=== PATIENT | female | born 1995 | race Hispanic/Latino ===

== ENCOUNTER 2018-02-08 14:40 | Emergency (ER) | payer MEDICAID, OTHER ==
[2018-02-08 14:59] VITALS: RESP 20; O2SAT 98
--- NOTE | 2018-02-08 15:35 | ED PDOC ---
HPI: General Adult Time Seen by Provider: 02/08/18 15:09 Chief Complaint (Nursing): ENT Problem Chief Complaint (Provider): NECK PAIN History Per: Patient (22 Y/O FEMLAE HERE FOR SYNCOPAL EPISODE THAT OCCURRED 2 DAYS AGO AT WORK. PATIENT STATES SHE HAD NOT SLEPT PRIOR TO 6AM SHIFT AT [employer] AND WAS FEELING DIZZY PRIOR . 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 SUBSEQEUNTLY DEVELOPED WORSENING NECK PAIN.) Past Medical History Reviewed: Historical Data, Nursing Documentation, Vital Signs Vital Signs: Last Vital Signs Temp 97.6 F 02/08/18 14:55 Pulse 90 02/08/18 14:55 Resp 20 02/08/18 14:55 BP 126/79 02/08/18 15:02 Pulse Ox 98 02/08/18 16:53 - Medical History PMH: Denies: Kidney Stones, Chronic Kidney Disease - Family History Family History: States: No Known Family Hx - Immunization History Hx Tetanus Toxoid Vaccination: No Hx Influenza Vaccination: No Hx Pneumococcal Vaccination: No - Home Medications Home Medications: Ambulatory Orders Medication Instructions Recorded Naproxen 375 mg PO Q8 PRN #21 tablet 02/08/18 diaZEpam [Valium] 5 mg PO Q8 PRN #3 tab 02/08/18 - Allergies Allergies/Adverse Reactions: Allergies Allergy/AdvReac Type Severity Reaction Status Date / Time No Known Allergies Allergy Verified 08/17/17 15:50 Review of Systems ROS Statement: Except As Marked, All Systems Reviewed And Found Negative Physical Exam - Reviewed Nursing Documentation Reviewed: Yes Vital Signs Reviewed: Yes - Physical Exam Appears: Positive for: Well, Non-toxic, No Acute Distress Head Exam: Positive for: ATRAUMATIC, NORMAL INSPECTION, NORMOCEPHALIC Skin: Positive for: Normal Color, Warm, DRY Eye Exam: Positive for: EOMI, Normal appearance, PERRL ENT: Positive for: Normal ENT Inspection Neck: Positive for: Painless ROM. Negative for: Normal (PARACERVICAL TENDERNESS ; MILD BILATERAL NECK TENDERNESS.) Cardiovascular/Chest: Positive for: Regular Rate, Rhythm Respiratory: Positive for: CNT, Normal Breath Sounds Gastrointestinal/Abdominal: Positive for: Normal Exam, Soft Back: Positive for: Normal Inspection Extremity: Positive for: Normal ROM Neurologic/Psych: Positive for: Alert, Oriented - Laboratory Results Result Diagrams: 02/08/18 15:41 02/08/18 15:41 Urine POC: Negative - ECG O2 Sat by Pulse Oximetry: 98 - Progress ED Course And Treament: HEAD CT: NAD CERVICAL CT SPINE: NAD TORADOL 15MG IV Disposition - Clinical Impression Clinical Impression: Acute strain of neck muscle, Syncope, Head injury - Patient ED Disposition Is Patient to be Admitted: No - Disposition Disposition: Routine/Home Disposition Time: 16:51 Condition: FAIR Prescriptions: diaZEpam [Valium] 5 mg PO Q8 PRN #3 tab PRN Reason: Muscle Spasm Naproxen 375 mg PO Q8 PRN #21 tablet PRN Reason: Pain, Moderate (4-7) Instructions: Closed Head Injury (DC), Syncope (Fainting) (DC), Neck Sprain (DC ) Forms: [facility] ED School/Work Excuse
[2018-02-08 15:49] LABS: BASO # 0.1 K/uL (0.0-0.2); BASO % 1.2 % (0.0-2.0); EOS # 0.1 K/uL (0.0-0.7); EOS % 1.5 % (0.0-4.0); HEMOGLOBIN 13.1 g/dL (12.0-16.0); LYMPH % 38.1 % (20.0-40.0); MEAN CELL VOLUME 85.1 fl (81.0-99.0); MEAN CORPUSCULAR HEMOGLOBIN 29.4 pg (27.0-31.0); MEAN CORPUSCULAR HGB CONC 34.5 g/dL (33.0-37.0); MEAN PLATELET VOLUME 8.9 fl (7.2-11.7); MONO # 0.4 K/uL (0.0-0.8); MONO % 4.8 % (0.0-10.0); NEUT # 4.3 K/uL (1.8-7.0); NEUT % 54.4 % (50.0-75.0); RBC 4.46 Mil/uL (3.80-5.20); RED CELL DISTRIBUTION WIDTH 13.7 % (11.5-14.5)
[2018-02-08 16:01] LABS: ALB/GLOB RATIO 1.3 (1.0-2.1); ALBUMIN 4.2 g/dL (3.5-5.0); ALT/SGPT 35 U/L (9-52); AST/SGOT 21 U/L (14-36); BLOOD UREA NITROGEN 7 mg/dl (7-17); CALCIUM 9.4 mg/dL (8.4-10.2); GFR AFRICAN-AMERICAN > 60; GFR NON-AFRICAN AMERICAN > 60
--- NOTE | 2018-02-08 16:44 | CT ---
Date of service: 02/08/2018 PROCEDURE: CT HEAD WITHOUT CONTRAST. HISTORY: HEAD INJURY COMPARISON: 08/17/2017 TECHNIQUE: Axial computed tomography images were obtained through the head/brain without intravenous contrast. Radiation dose: Total exam DLP = 822.19 mGy-cm. This CT exam was performed using one or more of the following dose reduction techniques: Automated exposure control, adjustment of the mA and/or kV according to patient size, and/or use of iterative reconstruction technique. FINDINGS: HEMORRHAGE: No intracranial hemorrhage. BRAIN: No mass effect or edema. No atrophy or chronic microvascular ischemic changes. VENTRICLES: Unremarkable. No hydrocephalus. CALVARIUM: Unremarkable. PARANASAL SINUSES: Unremarkable as visualized. No significant inflammatory changes. MASTOID AIR CELLS: Unremarkable as visualized. No inflammatory changes. OTHER FINDINGS: None. IMPRESSION: No acute intracranial abnormalities. No significant findings to account for the clinical presentation. No significant interval change compared to the prior examination(s).
--- NOTE | 2018-02-08 16:46 | CT ---
Date of service: 02/08/2018 PROCEDURE: CT Cervical Spine without contrast HISTORY: R/O C SPINE INJURY COMPARISON: None available. TECHNIQUE: Axial computed tomography images were obtained of the cervical spine without the use of intravenous contrast. Coronal and sagittal reformatted images were created and reviewed. Radiation dose: Total exam DLP = 308.16 mGy-cm. This CT exam was performed using one or more of the following dose reduction techniques: Automated exposure control, adjustment of the mA and/or kV according to patient size, and/or use of iterative reconstruction technique. FINDINGS: VERTEBRAE: No fracture. Normal alignment. No destructive bony lesion. DISCS/SPINAL CANAL/NEURAL FORAMINA: No significant central canal or neural foraminal stenosis. Discs heights are grossly preserved. PARASPINAL SOFT TISSUES: Unremarkable. OTHER FINDINGS: None. IMPRESSION: Unremarkable CT of the cervical spine.
[2018-02-08 17:48] VITALS: BP 110/70; PULSE 74; TEMP 98
--- NOTE | 2018-02-09 20:06 | CARD ---
APPROVED REPORT Date of service: 02/08/2018 EKG Measurement Heart [id number] <Conclusion> Normal sinus rhythm with sinus arrhythmia Normal ECG
== END 2018-02-08 17:47 | disposition home or self-care (01) ==
LOC: H.ER 14:40
DX: S16.1XXA Strain of muscle, fascia and tendon at neck level, initial encounter (principal); S09.90XA Unspecified injury of head, initial encounter; W19.XXXA Unspecified fall, initial encounter; Y99.0 Civilian activity done for income or pay
CPT/HCPCS: 70450; 72125; 80053; 81025; 85025; 93005; 96374; 99283; J1885

== ENCOUNTER 2018-03-17 23:59 | Inpatient (IN) | payer OTHER, SELFPAY ==
[2018-03-18] MEDS ORDERED: Sodium Chloride 0.9% 1,000 ML IV ONE (00:20)
[2018-03-18 00:52] LABS: BASO # 0.1 K/uL (0.0-0.2); EOS # 0.1 K/uL (0.0-0.7); EOS % 0.9 % (0.0-4.0); HEMOGLOBIN 14.5 g/dL (12.0-16.0); LYMPH # 2.9 K/uL (1.0-4.3); LYMPH % 37.9 % (20.0-40.0); MEAN CELL VOLUME 85.4 fl (81.0-99.0); MEAN CORPUSCULAR HEMOGLOBIN 28.8 pg (27.0-31.0); MEAN CORPUSCULAR HGB CONC 33.7 g/dL (33.0-37.0); MEAN PLATELET VOLUME 9.2 fl (7.2-11.7); MONO # 0.5 K/uL (0.0-0.8); MONO % 6.6 % (0.0-10.0); NEUT # 4.1 K/uL (1.8-7.0); NEUT % 53.6 % (50.0-75.0); RBC 5.03 Mil/uL (3.80-5.20); RED CELL DISTRIBUTION WIDTH 13.8 % (11.5-14.5); WHITE BLOOD COUNT 7.6 K/uL (4.8-10.8)
[2018-03-18 01:04] LABS: ALB/GLOB RATIO 1.1 (1.0-2.1); ALBUMIN 4.2 g/dL (3.5-5.0); ALT/SGPT 37 U/L (9-52); AST/SGOT 31 U/L (14-36); BLOOD UREA NITROGEN 6 mg/dl (7-17); CALCIUM 9.5 mg/dL (8.4-10.2); GFR NON-AFRICAN AMERICAN > 60
[2018-03-18 01:11] LABS: SALICYLATE < 1.0 mg/dl
[2018-03-18] MEDS ORDERED: ACETYLCYSTEINE IVPB ONE ×4 (01:12→05:30)
[2018-03-18] MEDS ORDERED: DEXTROSE 5% IVPB ONE ×4 (01:12→05:30)
[2018-03-18] MEDS ORDERED: WATER IVPB ONE ×4 (01:12→05:30)
[2018-03-18 01:39] LABS: BARBITURATES, UR NEGATIVE (NEGATIVE); BENZODIAZEPINES, UR NEGATIVE (NEGATIVE); OPIATES, UR NEGATIVE (NEGATIVE); PHENCYCLIDINE, UR NEGATIVE (NEGATIVE)
--- NOTE | 2018-03-18 01:39 | ED PDOC ---
HPI: Psych/Substance Abuse Time Seen by Provider: 03/18/18 00:17 Chief Complaint (Nursing): Psychiatric Evaluation Chief Complaint (Provider): Overdose History Per: Patient History/Exam Limitations: no limitations Onset/Duration Of Symptoms: Hrs Current Symptoms Are (Timing): Still Present Associated Symptoms: Depression Additional Complaint(s): 22 year old female with PMHx of depression presents to the ER by [facility] for an evaluation for overdose. Patient states she took 40 tablets of Ibuprofen 200mg at 7pm and 28 tablets of Tylenol 500mg at 10pm. Patient denies taking any medication for depression or visiting a therapist. She notes history of SI by jumping from [place] 2 years ago. When questioned, patient states she has an awful relationship with , they fight everyday, and marriage is a mistake. Currently, she reports of mild headache. Denies sexual or physical abuse at home or any other complaints. PMD: None LNMP: 09/01/17 Past Medical History Reviewed: Historical Data, Nursing Documentation, Vital Signs Vital Signs: Last Vital Signs Temp 98 F 03/18/18 00:12 Pulse 100 H 03/18/18 00:12 Resp 18 03/18/18 00:12 BP 148/97 H 03/18/18 00:12 Pulse Ox 100 03/18/18 00:12 - Medical History PMH: Depression Denies: Kidney Stones, Chronic Kidney Disease - Surgical History Other surgeries: procedure to right arm as child - Family History Family History: States: Unknown Family Hx - Social History Current smoker - smoking cessation education provided: No Alcohol: None Drugs: Denies - Immunization History Hx Tetanus Toxoid Vaccination: No Hx Influenza Vaccination: No Hx Pneumococcal Vaccination: No - Home Medications Home Medications: Ambulatory Orders Medication Instructions Recorded Naproxen 375 mg PO Q8 PRN #21 tablet 02/08/18 diaZEpam [Valium] 5 mg PO Q8 PRN #3 tab 02/08/18 - Allergies Allergies/Adverse Reactions: Allergies Allergy/AdvReac Type Severity Reaction Status Date / Time No Known Allergies Allergy Verified 03/18/18 00:12 Review of Systems ROS Statement: Except As Marked, All Systems Reviewed And Found Negative Neurological: Positive for: Headache (mild) Psych: Positive for: Other (overdose) Physical Exam - Physical Exam Comments: GENERAL APPEARANCE: Patient is awake, alert, oriented x 3, in no acute distress. SKIN: Warm, dry; (-) cyanosis HEAD: (-) scalp swelling, (-) scalp tenderness. EYES: (-) conjunctival pallor, (-) scleral icterus, (-) nystagmus. ENMT: Mucous membranes moist. Airway patent: (-) stridor. NECK: (-) tenderness, (-) stiffness, (-) lymphadenopathy. HEART AND CARDIOVASCULAR: (-) irregularity; (-) murmur, (-) gallop. CHEST AND RESPIRATORY: (-) rales, (-) rhonchi, (-) wheezes; breath sounds equal. ABDOMEN: Soft, (-) distention, (-) tenderness, (-) guarding. NEURO AND PSYCH: Mental status as above. 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 Pupils equal and reactive; EOMI; (-) facial asymmetry; tongue and uvula midline. Strength and DTRs symmetric. - Laboratory Results Result Diagrams: 03/18/18 00:43 03/18/18 00:43 Urine POC: Negative Urine dip results: Negative for: Leukocyte Esterase, Blood, Nitrate, Ketones, Glucose, Bilirubin, Protein - ECG O2 Sat by Pulse Oximetry: 100 (RA) Pulse Ox Interpretation: Normal Medical Decision Making Medical Decision Making: Time: 18 Initial Impression: acetaminophen overdose, SI, depression Initial Plan: --EKG --Crisis Evaluation --ED Dipstick --Normal Saline 1000 mls/hr --1:1 Observation --Glucose, Blood, POC --Non Destructive Testing Inspector --IV Insertion --CBC w/ Differential --Glucose, POC Routine --Acetaminophen Stat --Alcohol serum --CMP --Drug screen, Urine --Lact Acid, Plasma --ED Urine Poison control contacted at 1215 by ED RN Nell and spoke with customer development representative Nicolasa. EKG: normal sinus rhythm 92, no ST elevation, QTC 452 Upreg: negative Udip unremarkable. 0112 Notified by lab of initial Acetaminophen level, anecdote ordered and call placed to hospitalist, Dr. Cotto. --Acetadote 13,610mg Dextrose 5% In Water 200ml 0127 Spoke to hospitalist, Dr. Cotto who is agreeable for admission and arrangements made for ICU admission. 0200 Patient with vomiting episode in ED. Zofran IVP ordered. Dr Cotto at bedside. Scribe Attestation: Documented by Carter Rodriguez, acting as a scribe for Emani Christine PA-C. Provider Scribe Attestation: All medical record entries made by the Scribe were at my direction and personally dictated by me. I have reviewed the chart and agree that the record accurately reflects my personal performance of the history, physical exam, medical decision making, and the department course for this patient. I have also personally directed, reviewed, and agree with the discharge instructions and disposition. Disposition - Clinical Impression Clinical Impression: Suicidal ideation, Acetaminophen overdose, Depression - Patient ED Disposition Is Patient to be Admitted: Yes Counseled Patient/Family Regarding: Studies Performed, Diagnosis - Disposition Disposition Time: 01:27 Condition: CRITICAL - Pt Status Changed To: Hospital Disposition Of: Inpatient (ICU) - Admit Certification Admit to Inpatient:: After my assessment, the patient will require hospitalization for at least two midnights. This is because of the severity of symptoms shown, intensity of services needed, and/or the medical risk in this patient being treated as an outpatient. - POA Present On Arrival: None Results - Lab Results Lab Results: 03/18/18 03/18/18 03/18/18 00:44 00:43 00:43 WBC RBC Hgb Hct MCV MCH MCHC RDW Plt Count MPV Neut % (Auto) Lymph % (Auto) Ida % (Auto) Eos % (Auto) Baso % (Auto) Neut # (Auto) Lymph # (Auto) Ida # (Auto) Eos # (Auto) Baso # (Auto) Sodium Potassium Chloride Carbon Dioxide Anion Gap BUN Creatinine Est GFR ( Amer) Est GFR (Non-Af Amer) POC Glucose (mg/dL) 100 Random Glucose Lactic Acid 1.2 Calcium Total Bilirubin AST ALT Alkaline Phosphatase Total Protein Albumin Globulin Albumin/Globulin Ratio Salicylates Urine Opiates Screen Negative Urine Methadone Screen Negative Acetaminophen Ur Barbiturates Screen Negative Ur Phencyclidine Scrn Negative Ur Amphetamines Screen Negative U Benzodiazepines Scrn Negative U Oth Cocaine Metabols Negative U Cannabinoids Screen Negative Alcohol, Quantitative 03/18/18 03/18/18 03/18/18 00:43 00:43 00:43 WBC 7.6 RBC 5.03 Hgb 14.5 Hct 43.0 MCV 85.4 MCH 28.8 MCHC 33.7 RDW 13.8 Plt Count 277 MPV 9.2 Neut % (Auto) 53.6 Lymph % (Auto) 37.9 Ida % (Auto) 6.6 Eos % (Auto) 0.9 Baso % (Auto) 1.0 Neut # (Auto) 4.1 Lymph # (Auto) 2.9 Ida # (Auto) 0.5 Eos # (Auto) 0.1 Baso # (Auto) 0.1 Sodium 139 Potassium 3.6 Chloride 103 Carbon Dioxide 25 Anion Gap 15 BUN 6 L Creatinine 0.6 L Est GFR ( Amer) > 60 Est GFR (Non-Af Amer) > 60 POC Glucose (mg/dL) Random Glucose 106 H Lactic Acid Calcium 9.5 Total Bilirubin 0.5 AST 31 ALT 37 Alkaline Phosphatase 64 Total Protein 7.9 Albumin 4.2 Globulin 3.7 Albumin/Globulin Ratio 1.1 Salicylates < 1.0 Urine Opiates Screen Urine Methadone Screen Acetaminophen 145.0 H Ur Barbiturates Screen Ur Phencyclidine Scrn Ur Amphetamines Screen U Benzodiazepines Scrn U Oth Cocaine Metabols U Cannabinoids Screen Alcohol, Quantitative < 10
--- NOTE | 2018-03-18 02:28 | CP.PCM.HP ---
<Bo Zavaleta - Last Filed: 03/18/18 02:51> History of Present Illness - History of Present Illness History of Present Illness: Pt seen and examined at bedside with Dr. Cotto 22 yo F with pmhx of depression and previous suicidal attempts presents to the ED after attempting suicide with ingestion of Ibuprophen #44 tablets and Tylenol # 28 tablets. She reports that she and her had an argument earlier in the day. Approximately 7 hours prior, she ingested the tablets. She denies feeling unsafe with him, him being violent against her or threatened by him. She reports chronic history of depression starting at age 17 with thoughts of suicide. At age of 20, she attempted suicide by jumping off a bridge. She was then treated by a therapist at [facility]. Last time she saw her therapist was 1 year ago. Pt is actively suicidal. She reports she would ingest Ibuprophen and Acetaminophen again. ROS: She reports nausea. She did not vomit before arriving to the ED. However, during interview, pt vomited. Denies CP/SOB/dizziness, abdo pain pmd: none pmhx: depression surg: R arm famhx: htn, ca soc: lives w/ , denies: smoking, alcohol, illicit drugs NKDA ER course Afebrile, HR: 84 from 100; BP 114/61 from 148/97; Saturating 98 % on RA IVF: NS 1L bolus; Rx: Zofran, Protonix; Acetylcysteine infusion started per IV 20 hr protocol CBC: 7.6>14.5/43.0<277 CMP: 139/3.6//103/25//6/0.6<100 COAG: pending Present on Admission - Present on Admission Any Indicators Present on Admission: No History of Uncontrolled Diabetes: No Urinary Catheter: No Review of Systems - Constitutional Constitutional: As Per HPI - Cardiovascular Cardiovascular: absent: Chest Pain - Respiratory Respiratory: absent: Cough, Dyspnea - Gastrointestinal Gastrointestinal: absent: Abdominal Pain - Neurological Neurological: absent: Abnormal Gait Past Patient History - Infectious Disease Hx of Infectious Diseases: None - Past Medical History & Family History Past Medical History?: Yes - Past Social History Smoking Status: Never Smoked Alcohol: None Drugs: Denies Home Situation {Lives}: With Family Domestic Violence: Negative - CARDIAC Hx Cardiac Disorders: No - PULMONARY Hx Respiratory Disorders: No - NEUROLOGICAL Hx Neurological Disorder: No - HEENT Hx HEENT Problems: No - RENAL Hx Chronic Kidney Disease: No Hx Kidney Stones: No - ENDOCRINE/METABOLIC Hx Endocrine Disorders: No - HEMATOLOGICAL/ONCOLOGICAL Hx Blood Disorders: No - INTEGUMENTARY Hx Dermatological Problems: No - MUSCULOSKELETAL/RHEUMATOLOGICAL Hx Musculoskeletal Disorders: No - GASTROINTESTINAL Hx Gastrointestinal Disorders: No - GENITOURINARY/GYNECOLOGICAL Hx Genitourinary Disorders: No - PSYCHIATRIC Hx Depression: Yes - SURGICAL HISTORY Hx Surgeries: Yes Hx Orthopedic Surgery: Yes Other/Comment: rt. arm sx. - ANESTHESIA Hx Anesthesia: Yes Meds Allergies/Adverse Reactions: Allergies Allergy/AdvReac Type Severity Reaction Status Date / Time No Known Allergies Allergy Verified 03/18/18 00:12 Physical Exam - Eye Exam Eye Exam: EOMI - Respiratory Exam Respiratory Exam: Clear to Auscultation Bilateral, NORMAL BREATHING PATTERN. absent: Wheezes - Cardiovascular Exam Cardiovascular Exam: REGULAR RHYTHM, +S1, +S2 - GI/Abdominal Exam GI & Abdominal Exam: Normal Bowel Sounds, Soft. absent: Tenderness - Neurological Exam Neurological exam: Alert, CN II-XII Intact, Oriented x3 - Psychiatric Exam Psychiatric exam: Depressed, Flat Affect Results - Vital Signs Recent Vital Signs: Last Vital Signs Temp 98 F 03/18/18 00:12 Pulse 100 H 03/18/18 00:12 Resp 18 03/18/18 00:12 BP 148/97 H 03/18/18 00:12 Pulse Ox 100 03/18/18 02:07 - Labs Result Diagrams: 03/18/18 00:43 03/18/18 00:43 Labs: Laboratory Results - last 24 hr 03/18/18 03/18/18 03/18/18 00:43 00:43 00:43 WBC 7.6 RBC 5.03 Hgb 14.5 Hct 43.0 MCV 85.4 MCH 28.8 MCHC 33.7 RDW 13.8 Plt Count 277 MPV 9.2 Neut % (Auto) 53.6 Lymph % (Auto) 37.9 Carson % (Auto) 6.6 Eos % (Auto) 0.9 Baso % (Auto) 1.0 Neut # (Auto) 4.1 Lymph # (Auto) 2.9 Carson # (Auto) 0.5 Eos # (Auto) 0.1 Baso # (Auto) 0.1 Sodium 139 Potassium 3.6 Chloride 103 Carbon Dioxide 25 Anion Gap 15 BUN 6 L Creatinine 0.6 L Est GFR ( Amer) > 60 Est GFR (Non-Af Amer) > 60 POC Glucose (mg/dL) Random Glucose 106 H Lactic Acid Calcium 9.5 Total Bilirubin 0.5 AST 31 ALT 37 Alkaline Phosphatase 64 Total Protein 7.9 Albumin 4.2 Globulin 3.7 Albumin/Globulin Ratio 1.1 Salicylates < 1.0 Urine Opiates Screen Urine Methadone Screen Acetaminophen 145.0 H Ur Barbiturates Screen Ur Phencyclidine Scrn Ur Amphetamines Screen U Benzodiazepines Scrn U Oth Cocaine Metabols U Cannabinoids Screen Alcohol, Quantitative < 10 03/18/18 03/18/18 03/18/18 00:43 00:43 00:44 WBC RBC Hgb Hct MCV MCH MCHC RDW Plt Count MPV Neut % (Auto) Lymph % (Auto) Carson % (Auto) Eos % (Auto) Baso % (Auto) Neut # (Auto) Lymph # (Auto) Carson # (Auto) Eos # (Auto) Baso # (Auto) Sodium Potassium Chloride Carbon Dioxide Anion Gap BUN Creatinine Est GFR ( Amer) Est GFR (Non-Af Amer) POC Glucose (mg/dL) 100 Random Glucose Lactic Acid 1.2 Calcium Total Bilirubin AST ALT Alkaline Phosphatase Total Protein Albumin Globulin Albumin/Globulin Ratio Salicylates Urine Opiates Screen Negative Urine Methadone Screen Negative Acetaminophen Ur Barbiturates Screen Negative Ur Phencyclidine Scrn Negative Ur Amphetamines Screen Negative U Benzodiazepines Scrn Negative U Oth Cocaine Metabols Negative U Cannabinoids Screen Negative Alcohol, Quantitative Assessment & Plan (1) Acetaminophen overdose Status: Acute (2) Suicidal behavior with attempted self-injury Status: Acute (3) Suicidal ideation Status: Acute (4) Ibuprofen overdose Status: Acute - Assessment and Plan (Free Text) Assessment: 22 yo F with pmhx of depression and attempted suicide admitted for overdose in Ibuprophen and Acetaminophen. Drug overdose: -Ibuprophen and Acetaminophen -Admit to ICU -Continue IV N-Acetylcysteine -f/u Acetaminophen levels, LFTs, coags, ABG. -Repeat coag 2 hours prior to completion of last IV infusion of N-Acetylcyteine -Psych consult: recommendations appreciated for active suicidal ideation -Continue 1-to-1 -Zofran prn -Monitor vitals DVT prophylaxis -SCD, pantoprazole Case dw Dr. Yadiel Zavaleta MD PGY2 <YadielJanes A - Last Filed: 03/18/18 04:09> Results - Vital Signs Recent Vital Signs: Last Vital Signs Temp 97.1 F L 03/18/18 02:21 Pulse 84 03/18/18 02:21 Resp 16 03/18/18 02:21 BP 114/61 03/18/18 02:21 Pulse Ox 100 03/18/18 03:08 - Labs Result Diagrams: 03/18/18 00:43 03/18/18 00:43 Labs: Laboratory Results - last 24 hr 03/18/18 03/18/18 03/18/18 00:43 00:43 00:43 WBC 7.6 RBC 5.03 Hgb 14.5 Hct 43.0 MCV 85.4 MCH 28.8 MCHC 33.7 RDW 13.8 Plt Count 277 MPV 9.2 Neut % (Auto) 53.6 Lymph % (Auto) 37.9 Carson % (Auto) 6.6 Eos % (Auto) 0.9 Baso % (Auto) 1.0 Neut # (Auto) 4.1 Lymph # (Auto) 2.9 Carson # (Auto) 0.5 Eos # (Auto) 0.1 Baso # (Auto) 0.1 PT INR APTT Sodium 139 Potassium 3.6 Chloride 103 Carbon Dioxide 25 Anion Gap 15 BUN 6 L Creatinine 0.6 L Est GFR ( Amer) > 60 Est GFR (Non-Af Amer) > 60 POC Glucose (mg/dL) Random Glucose 106 H Lactic Acid Calcium 9.5 Total Bilirubin 0.5 AST 31 ALT 37 Alkaline Phosphatase 64 Total Protein 7.9 Albumin 4.2 Globulin 3.7 Albumin/Globulin Ratio 1.1 Salicylates < 1.0 Urine Opiates Screen Urine Methadone Screen Acetaminophen 145.0 H Ur Barbiturates Screen Ur Phencyclidine Scrn Ur Amphetamines Screen U Benzodiazepines Scrn U Oth Cocaine Metabols U Cannabinoids Screen Alcohol, Quantitative < 10 03/18/18 03/18/18 03/18/18 00:43 00:43 00:44 WBC RBC Hgb Hct MCV MCH MCHC RDW Plt Count MPV Neut % (Auto) Lymph % (Auto) Carson % (Auto) Eos % (Auto) Baso % (Auto) Neut # (Auto) Lymph # (Auto) Carson # (Auto) Eos # (Auto) Baso # (Auto) PT INR APTT Sodium Potassium Chloride Carbon Dioxide Anion Gap BUN Creatinine Est GFR ( Amer) Est GFR (Non-Af Amer) POC Glucose (mg/dL) 100 Random Glucose Lactic Acid 1.2 Calcium Total Bilirubin AST ALT Alkaline Phosphatase Total Protein Albumin Globulin Albumin/Globulin Ratio Salicylates Urine Opiates Screen Negative Urine Methadone Screen Negative Acetaminophen Ur Barbiturates Screen Negative Ur Phencyclidine Scrn Negative Ur Amphetamines Screen Negative U Benzodiazepines Scrn Negative U Oth Cocaine Metabols Negative U Cannabinoids Screen Negative Alcohol, Quantitative 03/18/18 02:47 WBC RBC Hgb Hct MCV MCH MCHC RDW Plt Count MPV Neut % (Auto) Lymph % (Auto) Carson % (Auto) Eos % (Auto) Baso % (Auto) Neut # (Auto) Lymph # (Auto) Carson # (Auto) Eos # (Auto) Baso # (Auto) PT 13.6 H INR 1.2 APTT 62.4 H Sodium Potassium Chloride Carbon Dioxide Anion Gap BUN Creatinine Est GFR ( Amer) Est GFR (Non-Af Amer) POC Glucose (mg/dL) Random Glucose Lactic Acid Calcium Total Bilirubin AST ALT Alkaline Phosphatase Total Protein Albumin Globulin Albumin/Globulin Ratio Salicylates Urine Opiates Screen Urine Methadone Screen Acetaminophen Ur Barbiturates Screen Ur Phencyclidine Scrn Ur Amphetamines Screen U Benzodiazepines Scrn U Oth Cocaine Metabols U Cannabinoids Screen Alcohol, Quantitative Attending/Attestation - Attestation I have personally seen and examined this patient.: Yes I have fully participated in the care of the patient.: Yes I have reviewed all pertinent clinical information: Yes Notes (Text): 03/18/18 03:43 I saw and examined this patient with Dr Soriano. I agree with the assessment and plan which indicate my direct input. This is a 22 years old female with hx of Depression who in a Suicide attempt, ingested 28 Tylenol at 500mg each and 40 Motrin at 200mg each 5 hours before being brought to the ED. A&P #. Tylenol Overdose #. Motrin overdose - Poison Control Called - Acetylcysteine as per Tylenol Overdose Protocol - Admit to ICU - Repeat Tylenol level in 4 hours and 2 hours before the completion of the Third bag of Acetylcysteine - Pantoprazole - IV fluids D5/NS 100mls/hr - Zofran for nausea and vomits - Follow INR/PTT - LFT - Renal labs - ABG monitor for Acidosis -Magnesium/Phosphorous #. Suicide Attempt - Psychiatric Consult with Dr Young - 1:1 suicide Observation #. DVT prophylaxis with SCD Janes Cotto MD
[2018-03-18 02:56] LABS: INR 1.2; PROTHROMBIN TIME 13.6 Seconds (9.8-13.1)
[2018-03-18 02:59] VITALS: BMI 30.2
[2018-03-18 02:59] LABS: PARTIAL THROMBOPLASTIN TIME 62.4 Seconds (25.6-37.1)
[2018-03-18 04:31] LABS: ABG ALLEN TEST YES; ARTERIAL BLOOD GAS HCO3 23.2 mmol/L (21-28); ARTERIAL BLOOD GAS HEMOGLOBIN 13.7 g/dL (11.7-17.4); ARTERIAL BLOOD GAS O2 CAPACITY 18.7 mL/dL (16-24); ARTERIAL BLOOD GAS O2 CONTENT 18.6 ML/dL (15-23); ARTERIAL BLOOD GAS O2 SAT 99.5 % (95-98); ARTERIAL BLOOD GAS PCO2 37 mm/Hg (35-45); ARTERIAL BLOOD GAS PH 7.39 (7.35-7.45); ARTERIAL BLOOD GAS PO2 92 mm/Hg (80-100); ARTERIAL BLOOD GAS TCO2 23.5 mmol/L (22-28)
[2018-03-18 06:06] LABS: ALB/GLOB RATIO 1.2 (1.0-2.1); ALBUMIN 3.7 g/dL (3.5-5.0); ALT/SGPT 36 U/L (9-52); AST/SGOT 27 U/L (14-36); BLOOD UREA NITROGEN 6 mg/dl (7-17); CALCIUM 8.7 mg/dL (8.4-10.2); GFR NON-AFRICAN AMERICAN > 60
--- NOTE | 2018-03-18 06:38 | CARD ---
APPROVED REPORT Date of service: 03/18/2018 EKG Measurement Heart [id number] ID [id number] <Conclusion> Normal sinus rhythm Normal ECG
[2018-03-18] MEDS: ACETYLCYSTEINE IVPB SCH ×2 (08:00→17:12)
[2018-03-18] MEDS: WATER IVPB SCH ×2 (08:00→17:12)
[2018-03-18] MEDS: DEXTROSE 5% IVPB SCH ×2 (08:00→17:12)
--- NOTE | 2018-03-18 08:15 | CP.PCM.CON ---
History of Present Illness - History of Present Illness History of Present Illness: Psychiatry consult note CC: Suicide attempt HPI: 22 yo female w/ h/o depression, 1 prior suicide attempt (@ 20 yr old attempted to jump off [email or web address]), presents s/p suicide attempt by overdose on Ibuprofen (44 tablets) and Tylenol (28 tablets) in the context of having an argument with her . +Depression +Anxiety +Sleep disturbances +Feelings of hopelessness. 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 -Inpatient psychiatric admission when patient is medically stable; patient is currently agreeable to voluntary psychiatric hospitalization Past Patient History - Infectious Disease Hx of Infectious Diseases: None - Past Medical History & Family History Past Medical History?: Yes - Past Social History Alcohol: None Drugs: Denies - CARDIAC Hx Cardiac Disorders: No - PULMONARY Hx Respiratory Disorders: No - NEUROLOGICAL Hx Neurological Disorder: No - HEENT Hx HEENT Problems: No - RENAL Hx Chronic Kidney Disease: No Hx Kidney Stones: No - ENDOCRINE/METABOLIC Hx Endocrine Disorders: No - HEMATOLOGICAL/ONCOLOGICAL Hx Blood Disorders: No - INTEGUMENTARY Hx Dermatological Problems: No - MUSCULOSKELETAL/RHEUMATOLOGICAL Hx Musculoskeletal Disorders: No Hx Falls: No - GASTROINTESTINAL Hx Gastrointestinal Disorders: No - GENITOURINARY/GYNECOLOGICAL Hx Genitourinary Disorders: No - PSYCHIATRIC Hx Depression: Yes - SURGICAL HISTORY Hx Surgeries: Yes Hx Orthopedic Surgery: Yes Other/Comment: rt. arm sx. - ANESTHESIA Hx Anesthesia: Yes Meds Allergies/Adverse Reactions: Allergies Allergy/AdvReac Type Severity Reaction Status Date / Time No Known Allergies Allergy Verified 03/18/18 00:12 - Medications Medications: Current Medications Acetylcysteine 3,867 mg/ (Dextrose) 519.335 mls @ 64.917 mls/hr IVPB Q8H [facility] Stop: 03/18/18 23:59 Dextrose/Sodium Chloride (Dextrose 5%/0.9% Ns 1000 Ml) 1,000 mls @ 100 mls/hr IV .Q10H [facility] Stop: 03/19/18 07:21 Ondansetron HCl (Zofran Inj) 4 mg IVP Q4 PRN PRN Reason: Nausea/Vomiting Pantoprazole Sodium (Protonix Inj) 40 mg IVP DAILY [facility] Results - Vital Signs Recent Vital Signs: Last Vital Signs Temp 97.1 F L 03/18/18 02:21 Pulse 81 03/18/18 06:00 Resp 19 03/18/18 06:00 BP 119/63 03/18/18 06:00 Pulse Ox 94 L 03/18/18 06:00 - Labs Result Diagrams: 03/18/18 00:43 03/18/18 04:20 Labs: Laboratory Results - last 24 hr 03/18/18 03/18/18 03/18/18 00:43 00:43 00:43 WBC 7.6 RBC 5.03 Hgb 14.5 Hct 43.0 MCV 85.4 MCH 28.8 MCHC 33.7 RDW 13.8 Plt Count 277 MPV 9.2 Neut % (Auto) 53.6 Lymph % (Auto) 37.9 [place] % (Auto) 6.6 Eos % (Auto) 0.9 Baso % (Auto) 1.0 Neut # (Auto) 4.1 Lymph # (Auto) 2.9 [place] # (Auto) 0.5 Eos # (Auto) 0.1 Baso # (Auto) 0.1 PT INR APTT pCO2 pO2 HCO3 ABG pH ABG Total CO2 ABG O2 Saturation ABG O2 Content ABG Base Excess ABG Hemoglobin ABG Carboxyhemoglobin POC ABG HHb (Measured) ABG Methemoglobin ABG O2 Capacity [place] Test A-a O2 Difference Hgb O2 Saturation FiO2 Sodium 139 Potassium 3.6 Chloride 103 Carbon Dioxide 25 Anion Gap 15 BUN 6 L Creatinine 0.6 L Est GFR ( Amer) > 60 Est GFR (Non-Af Amer) > 60 POC Glucose (mg/dL) Random Glucose 106 H Lactic Acid Calcium 9.5 Phosphorus Magnesium Total Bilirubin 0.5 Direct Bilirubin AST 31 ALT 37 Alkaline Phosphatase 64 Total Protein 7.9 Albumin 4.2 Globulin 3.7 Albumin/Globulin Ratio 1.1 Salicylates < 1.0 Urine Opiates Screen Urine Methadone Screen Acetaminophen 145.0 H Ur Barbiturates Screen Ur Phencyclidine Scrn Ur Amphetamines Screen U Benzodiazepines Scrn U Oth Cocaine Metabols U Cannabinoids Screen Alcohol, Quantitative < 10 03/18/18 03/18/18 03/18/18 00:43 00:43 00:44 WBC RBC Hgb Hct MCV MCH MCHC RDW Plt Count MPV Neut % (Auto) Lymph % (Auto) [place] % (Auto) Eos % (Auto) Baso % (Auto) Neut # (Auto) Lymph # (Auto) [place] # (Auto) Eos # (Auto) Baso # (Auto) PT INR APTT pCO2 pO2 HCO3 ABG pH ABG Total CO2 ABG O2 Saturation ABG O2 Content ABG Base Excess ABG Hemoglobin ABG Carboxyhemoglobin POC ABG HHb (Measured) ABG Methemoglobin ABG O2 Capacity [place] Test A-a O2 Difference Hgb O2 Saturation FiO2 Sodium Potassium Chloride Carbon Dioxide Anion Gap BUN Creatinine Est GFR ( Amer) Est GFR (Non-Af Amer) POC Glucose (mg/dL) 100 Random Glucose Lactic Acid 1.2 Calcium Phosphorus Magnesium Total Bilirubin Direct Bilirubin AST ALT Alkaline Phosphatase Total Protein Albumin Globulin Albumin/Globulin Ratio Salicylates Urine Opiates Screen Negative Urine Methadone Screen Negative Acetaminophen Ur Barbiturates Screen Negative Ur Phencyclidine Scrn Negative Ur Amphetamines Screen Negative U Benzodiazepines Scrn Negative U Oth Cocaine Metabols Negative U Cannabinoids Screen Negative Alcohol, Quantitative 03/18/18 03/18/18 03/18/18 02:47 04:20 04:20 WBC RBC Hgb Hct MCV MCH MCHC RDW Plt Count MPV Neut % (Auto) Lymph % (Auto) [place] % (Auto) Eos % (Auto) Baso % (Auto) Neut # (Auto) Lymph # (Auto) [place] # (Auto) Eos # (Auto) Baso # (Auto) PT 13.6 H INR 1.2 APTT 62.4 H pCO2 pO2 HCO3 ABG pH ABG Total CO2 ABG O2 Saturation ABG O2 Content ABG Base Excess ABG Hemoglobin ABG Carboxyhemoglobin POC ABG HHb (Measured) ABG Methemoglobin ABG O2 Capacity [place] Test A-a O2 Difference Hgb O2 Saturation FiO2 Sodium 139 Potassium 3.8 Chloride 103 Carbon Dioxide 24 Anion Gap 16 BUN 6 L Creatinine 0.5 L Est GFR ( Amer) > 60 Est GFR (Non-Af Amer) > 60 POC Glucose (mg/dL) Random Glucose 135 H Lactic Acid Calcium 8.7 Phosphorus 2.7 Magnesium 1.6 Total Bilirubin 0.2 Direct Bilirubin 0.0 AST 27 ALT 36 Alkaline Phosphatase < 20 L D Total Protein 7.0 Albumin 3.7 Globulin 3.2 Albumin/Globulin Ratio 1.2 Salicylates Urine Opiates Screen Urine Methadone Screen Acetaminophen 89.0 H Ur Barbiturates Screen Ur Phencyclidine Scrn Ur Amphetamines Screen U Benzodiazepines Scrn U Oth Cocaine Metabols U Cannabinoids Screen Alcohol, Quantitative 03/18/18 04:22 WBC RBC Hgb Hct MCV MCH MCHC RDW Plt Count MPV Neut % (Auto) Lymph % (Auto) [place] % (Auto) Eos % (Auto) Baso % (Auto) Neut # (Auto) Lymph # (Auto) [place] # (Auto) Eos # (Auto) Baso # (Auto) PT INR APTT pCO2 37 pO2 92 HCO3 23.2 ABG pH 7.39 ABG Total CO2 23.5 ABG O2 Saturation 99.5 H ABG O2 Content 18.6 ABG Base Excess -2.2 L ABG Hemoglobin 13.7 ABG Carboxyhemoglobin 1.8 H POC ABG HHb (Measured) 0.5 ABG Methemoglobin 1.6 ABG O2 Capacity 18.7 [place] Test Yes A-a O2 Difference 11.0 Hgb O2 Saturation 96.1 FiO2 21.0 Sodium Potassium Chloride Carbon Dioxide Anion Gap BUN Creatinine Est GFR ( Amer) Est GFR (Non-Af Amer) POC Glucose (mg/dL) Random Glucose Lactic Acid Calcium Phosphorus Magnesium Total Bilirubin Direct Bilirubin AST ALT Alkaline Phosphatase Total Protein Albumin Globulin Albumin/Globulin Ratio Salicylates Urine Opiates Screen Urine Methadone Screen Acetaminophen Ur Barbiturates Screen Ur Phencyclidine Scrn Ur Amphetamines Screen U Benzodiazepines Scrn U Oth Cocaine Metabols U Cannabinoids Screen Alcohol, Quantitative
[2018-03-18 10:07] LABS: HEMOGLOBIN 13.8 g/dL (12.0-16.0); MEAN CELL VOLUME 85.3 fl (81.0-99.0); MEAN CORPUSCULAR HEMOGLOBIN 28.9 pg (27.0-31.0); MEAN CORPUSCULAR HGB CONC 33.8 g/dL (33.0-37.0); RBC 4.78 Mil/uL (3.80-5.20); RED CELL DISTRIBUTION WIDTH 13.6 % (11.5-14.5); WHITE BLOOD COUNT 7.5 K/uL (4.8-10.8)
[2018-03-18 10:09] LABS: INR 1.2
[2018-03-18 10:11] LABS: PARTIAL THROMBOPLASTIN TIME 35.8 Seconds (25.6-37.1)
[2018-03-18 10:18] LABS: ALB/GLOB RATIO 1.1 (1.0-2.1); ALBUMIN 3.7 g/dL (3.5-5.0); ALT/SGPT 40 U/L (9-52); AST/SGOT 26 U/L (14-36); BLOOD UREA NITROGEN 5 mg/dl (7-17); CALCIUM 8.8 mg/dL (8.4-10.2); GFR NON-AFRICAN AMERICAN > 60
[2018-03-18] MEDS: Dextrose 5%/0.9% NS 1,000 ML IV SCH ×3 (10:18→21:07)
[2018-03-18] MEDS ORDERED: Influenza Vaccine 18yr & older 0.5 ML/45 MCG SYR (Inactive don't use) IM ONE (12:45)
--- NOTE | 2018-03-18 23:02 | PN ---
DATE: 03/18/2018 LOCATION: The patient in ICU, bed 426. TIME SPENT: 35 minutes. PAST MEDICAL HISTORY: Reviewed, as noted in H and P. PAST SURGICAL HISTORY: Reviewed, as noted in H and P. SOCIAL HISTORY: Reviewed, as noted in H and P. FAMILY HISTORY: Reviewed, as noted in H and P. Case discussed in multidisciplinary ICU rounds. SUBJECTIVE: The patient is seen and examined at the bedside. A 22-year-old female with past medical history significant for major depression and previous suicidal attempts, admitted through ED when she presented with ingestion of ibuprofen approximately 44 tablets and Tylenol 28 tablets about 7 hours prior to the admission. In ER, the patient was noted to be hemodynamically stable, oriented to name, place, and time. Started on acetylcysteine. Pre acetylcysteine, Tylenol was noted to be 145 and repeat one is reduced to 89 and repeat 21. The patient remains alert and awake, but with mild flat affect. Complaining of nausea and abdominal discomfort. PHYSICAL EXAMINATION: VITAL SIGNS: Temperature 98, heart rate 68 to 78, regular, blood pressure 112/72 to 147/70 with mean arterial pressure 95, respiratory rate 21, oxygen saturation 99% on room air. HEAD, EYES, EARS, NOSE, AND THROAT: Pupils are reactive. Conjunctivae pink. Sclerae white. NECK: Supple. Trachea central. CHEST: Bilateral breath sounds. Clear to auscultation. HEART: Rhythm regular. S1, S2 normal intensity. No S3, S4 gallop. No audible murmur. ABDOMEN: Bowel sounds present. Soft. Liver and spleen not palpable. Bladder not distended. EXTREMITIES: No clubbing, cyanosis, or edema. NEURO: No cranial nerve deficit. No sensory impairment. No motor deficit. PSYCHIATRIC: Depressed with flat affect. EXTREMITIES: No clubbing, cyanosis, or edema. CURRENT MEDICATIONS: Include Protonix 40 IV daily, Zofran 4 mg IV every 4 hours p.r.n., D5 normal at 100 mL per hour, acetylcysteine 3867 mg in 519.335 mL, at 649.7 mL/hour. LABORATORY DATA: WBC 7.5, hemoglobin 13.8, hematocrit 40.8, platelet count of 272. PT 13, INR 1.2, PTT 35.8. ABG: pH 7.39, pCO2 37, pO2 92, saturation 99.5, on FIO2 21%. SMA-7: Sodium 136, potassium 3.8, chloride 102, CO2 22, blood urea nitrogen 5, creatinine 0.5, random glucose 130, calcium 8.8, total bilirubin 0.3, AST 26, ALT 14, alkaline phosphatase 48, total protein 7, albumin 3.7. Current acetaminophen level 21. Alcohol level less than 21. Microbiology, none reported. Chest electrocardiogram: Heart rate 92, QT 366, QT corrected 452, normal sinus rhythm. IMPRESSION: 1. Neuro: Alert and awake, oriented to name, place and time. 2. Pulmonary: No acute issues. 3. Cardiac: Normotensive. Telemetry, sinus rhythm. 4. Gastrointestinal: Possible gastritis from the drug overdose, associated with ibuprofen. I will continue Protonix. 5. Renal: No acute issues. 6. Psychiatric: History of major depression. Admitted with overdose of Tylenol and ibuprofen. Continue acetylcysteine infusion. Follow up liver function tests. Psychiatric consult requested for further evaluation and treatment. Keep the head 30 degree up. Monitor hemodynamic stability and to complete the course of antidote with acetylcysteine infusion. Justino Cordero MD
[2018-03-18 23:22] LABS: INR 1.2; PROTHROMBIN TIME 13.3 Seconds (9.8-13.1)
[2018-03-18 23:24] LABS: PARTIAL THROMBOPLASTIN TIME 32.8 Seconds (25.6-37.1)
[2018-03-18 23:31] LABS: ALT/SGPT 40 U/L (9-52); AST/SGOT 44 U/L (14-36)
[2018-03-19 06:40] LABS: HEMOGLOBIN 13.1 g/dL (12.0-16.0); MEAN CELL VOLUME 85.6 fl (81.0-99.0); MEAN CORPUSCULAR HGB CONC 33.8 g/dL (33.0-37.0); RBC 4.51 Mil/uL (3.80-5.20); RED CELL DISTRIBUTION WIDTH 13.9 % (11.5-14.5); WHITE BLOOD COUNT 5.9 K/uL (4.8-10.8)
--- NOTE | 2018-03-19 06:41 | CP.PCM.PN ---
Objective - Vital Signs/Intake and Output Vital Signs (last 24 hours): Temp Pulse Resp BP Pulse Ox 98.2 F 62 16 122/71 98 03/18/18 23:22 03/19/18 03:16 03/19/18 03:16 03/19/18 03:16 03/19/18 03:16 Intake and Output: 03/18/18 03/19/18 18:59 06:59 Intake Total 1800 1534 Balance 1800 1534 - Medications Medications: Current Medications Home Med (Patient's Own Medication) 1 unit PO HS [facility] Last Admin: 03/18/18 21:08 Dose: 1 unit Dextrose/Sodium Chloride (Dextrose 5%/0.9% Ns 1000 Ml) 1,000 mls @ 100 mls/hr IV .Q10H [facility] Stop: 03/19/18 07:21 Last Admin: 03/18/18 21:07 Dose: 100 mls/hr Ondansetron HCl (Zofran Inj) 4 mg IVP Q4 PRN PRN Reason: Nausea/Vomiting Pantoprazole Sodium (Protonix Inj) 40 mg IVP DAILY [facility] Last Admin: 03/18/18 10:18 Dose: 40 mg - Labs Labs: 03/18/18 09:54 03/18/18 09:54 PT 13.3 Seconds (9.8-13.1) H 03/18/18 23:16 INR 1.2 03/18/18 23:16 APTT 32.8 Seconds (25.6-37.1) 03/18/18 23:16
[2018-03-19 06:43] LABS: INR 1.2; PROTHROMBIN TIME 13.1 Seconds (9.8-13.1)
[2018-03-19 06:46] VITALS: RESP 17
[2018-03-19 07:34] LABS: ALB/GLOB RATIO 1.1 (1.0-2.1); ALBUMIN 3.4 g/dL (3.5-5.0); ALT/SGPT 38 U/L (9-52); AST/SGOT 24 U/L (14-36); BLOOD UREA NITROGEN 2 mg/dl (7-17); CALCIUM 8.9 mg/dL (8.4-10.2); GFR NON-AFRICAN AMERICAN > 60
[2018-03-19 08:00] VITALS: BP 123/76; PULSE 69; TEMP 97.9; O2SAT 100
--- NOTE | 2018-03-19 09:34 | CP.CCUPN ---
CCU Subjective - Physician Review Events Since Last Encounter (Free Text): 03/19/18 10:07 The patient was Seen/interviewed and examined by me at the bedside during ICU round, Medical records reviewed and Management issues were discussed and formulated with the house staff. Events reviewed 22 Y/O F with PMHx of depression with previous suicidal attempts Who initially presents to the ED after attempting suicide with ingestion of Ibuprophen #44 tablets and Tylenol # 28 tablets. She reports that she ingested the tablets Approximately 7 hours prior to arrival to ER. This morning he feels well and is hemodynamically stable, Competed the last dose of N Acetylcysteine treatment Breathing unlabored, on room air O2 sat 100%. Comfortable, NAD Denies any chest pain, SOB or Palpitations Afebrile, NSR on the monitor This morning labs revealed stable LFTs Stable for transfer to Psych unit CCU Objective - Vital Signs / Intake & Output Vital Signs (Last 4 hours): Vital Signs Temp Pulse Resp BP Pulse Ox 03/19/18 07:59 97.9 F 69 17 123/76 100 03/19/18 06:00 65 17 138/85 99 Intake and Output (Last 8hrs): Intake & Output 03/18/18 03/19/18 03/19/18 22:59 06:59 14:59 Intake Total 2284 1350 Balance 2284 1350 Weight 150 lb Intake: IV 2164 800 Intake, Piggyback 120 250 Oral 300 Other: # Voids Urine, Voided 1 1 - Physical Exam Head: Positive for: Atraumatic, Normocephalic Pupils: Positive for: PERRL Extroacular Muscles: Positive for: EOMI Conjunctiva: Positive for: Normal Mouth: Positive for: Moist Mucous Membranes Neck: Positive for: Normal Range of Motion Respiratory/Chest: Positive for: Clear to Auscultation, Good Air Exchange. Negative for: Respiratory Distress, Accessory Muscle Use Cardiovascular: Positive for: Regular Rate and Rhythm, Normal S1, S2, Peripheal Pulses Present. Negative for: Murmurs Abdomen: Positive for: Normal Bowel Sounds. Negative for: Tenderness, Distention Back: Negative for: CVA Tenderness Neurological: Positive for: GCS=15, CN II-XII Intact, Speech Normal, Motor Func Grossly Intact, Normal Sensory Function Psychiatric: Positive for: Alert, Oriented x 3 - Medications Active Medications: Active Medications Generic Name Dose Route Start Last Admin Trade Name Freq PRN Reason Stop Dose Admin Home Med 1 unit 03/18/18 22:00 03/18/18 21:08 Patient's Own Medication PO 1 unit HS [facility] Administration Ondansetron HCl 4 mg 03/18/18 02:49 Zofran Inj IVP Q4 PRN Nausea/Vomiting Pantoprazole Sodium 40 mg 03/18/18 09:00 03/19/18 08:05 Protonix Inj IVP 40 mg DAILY [facility] Administration - Patient Studies Lab Studies: Lab Studies 03/19/18 03/19/18 03/19/18 Range/Units 06:00 06:00 06:00 WBC 5.9 (4.8-10.8) K/uL RBC 4.51 (3.80-5.20) Mil/uL Hgb 13.1 (12.0-16.0) g/dL Hct 38.7 (34.0-47.0) % MCV 85.6 (81.0-99.0) fl MCH 29.0 (27.0-31.0) pg MCHC 33.8 (33.0-37.0) g/dL RDW 13.9 (11.5-14.5) % Plt Count 230 (130-400) K/uL PT 13.1 (9.8-13.1) Seconds INR 1.2 APTT (25.6-37.1) Seconds Sodium 142 (132-148) mmol/l Potassium 3.5 L (3.6-5.0) MMOL/L Chloride 110 H (98-107) mmol/L Carbon Dioxide 26 (22-30) mmol/L Anion Gap 10 (10-20) BUN 2 L (7-17) mg/dl Creatinine 0.6 L (0.7-1.2) mg/dl Est GFR ( Amer) > 60 Est GFR (Non-Af Amer) > 60 Random Glucose 99 (65-105) mg/dL Calcium 8.9 (8.4-10.2) mg/dL Total Bilirubin 0.1 L (0.2-1.3) mg/dl AST 24 (14-36) U/L ALT 38 (9-52) U/L Alkaline Phosphatase 44 (38-126) U/L Total Protein 6.4 (6.3-8.2) G/DL Albumin 3.4 L (3.5-5.0) g/dL Globulin 3.0 (2.2-3.9) gm/dL Albumin/Globulin Ratio 1.1 (1.0-2.1) Acetaminophen (10.0-30.0) ug/ml 03/18/18 03/18/18 03/18/18 Range/Units 23:16 23:16 21:30 WBC (4.8-10.8) K/uL RBC (3.80-5.20) Mil/uL Hgb (12.0-16.0) g/dL Hct (34.0-47.0) % MCV (81.0-99.0) fl MCH (27.0-31.0) pg MCHC (33.0-37.0) g/dL RDW (11.5-14.5) % Plt Count (130-400) K/uL PT 13.3 H (9.8-13.1) Seconds INR 1.2 APTT 32.8 32.3 (25.6-37.1) Seconds Sodium (132-148) mmol/l Potassium (3.6-5.0) MMOL/L Chloride (98-107) mmol/L Carbon Dioxide (22-30) mmol/L Anion Gap (10-20) BUN (7-17) mg/dl Creatinine (0.7-1.2) mg/dl Est GFR ( Amer) Est GFR (Non-Af Amer) Random Glucose (65-105) mg/dL Calcium (8.4-10.2) mg/dL Total Bilirubin (0.2-1.3) mg/dl AST 44 H D (14-36) U/L ALT 40 (9-52) U/L Alkaline Phosphatase (38-126) U/L Total Protein (6.3-8.2) G/DL Albumin (3.5-5.0) g/dL Globulin (2.2-3.9) gm/dL Albumin/Globulin Ratio (1.0-2.1) Acetaminophen (10.0-30.0) ug/ml 03/18/1818 03/18/18 Range/Units 09:54 09:54 09:54 WBC (4.8-10.8) K/uL RBC (3.80-5.20) Mil/uL Hgb (12.0-16.0) g/dL Hct (34.0-47.0) % MCV (81.0-99.0) fl MCH (27.0-31.0) pg MCHC (33.0-37.0) g/dL RDW (11.5-14.5) % Plt Count (130-400) K/uL PT 13.0 (9.8-13.1) Seconds INR 1.2 APTT 35.8 (25.6-37.1) Seconds Sodium 136 (132-148) mmol/l Potassium 3.8 (3.6-5.0) MMOL/L Chloride 102 (98-107) mmol/L Carbon Dioxide 22 (22-30) mmol/L Anion Gap 16 (10-20) BUN 5 L (7-17) mg/dl Creatinine 0.5 L (0.7-1.2) mg/dl Est GFR ( Amer) > 60 Est GFR (Non-Af Amer) > 60 Random Glucose 130 H (65-105) mg/dL Calcium 8.8 (8.4-10.2) mg/dL Total Bilirubin 0.3 (0.2-1.3) mg/dl AST 26 (14-36) U/L ALT 40 (9-52) U/L Alkaline Phosphatase 48 (38-126) U/L Total Protein 7.0 (6.3-8.2) G/DL Albumin 3.7 (3.5-5.0) g/dL Globulin 3.3 (2.2-3.9) gm/dL Albumin/Globulin Ratio 1.1 (1.0-2.1) Acetaminophen 21.0 (10.0-30.0) ug/ml 03/18/18 Range/Units 09:54 WBC 7.5 (4.8-10.8) K/uL RBC 4.78 (3.80-5.20) Mil/uL Hgb 13.8 (12.0-16.0) g/dL Hct 40.8 (34.0-47.0) % MCV 85.3 (81.0-99.0) fl MCH 28.9 (27.0-31.0) pg MCHC 33.8 (33.0-37.0) g/dL RDW 13.6 (11.5-14.5) % Plt Count 272 (130-400) K/uL PT (9.8-13.1) Seconds INR APTT (25.6-37.1) Seconds Sodium (132-148) mmol/l Potassium (3.6-5.0) MMOL/L Chloride (98-107) mmol/L Carbon Dioxide (22-30) mmol/L Anion Gap (10-20) BUN (7-17) mg/dl Creatinine (0.7-1.2) mg/dl Est GFR ( Amer) Est GFR (Non-Af Amer) Random Glucose (65-105) mg/dL Calcium (8.4-10.2) mg/dL Total Bilirubin (0.2-1.3) mg/dl AST (14-36) U/L ALT (9-52) U/L Alkaline Phosphatase (38-126) U/L Total Protein (6.3-8.2) G/DL Albumin (3.5-5.0) g/dL Globulin (2.2-3.9) gm/dL Albumin/Globulin Ratio (1.0-2.1) Acetaminophen (10.0-30.0) ug/ml Laboratory Results - last 24 hr 03/18/18 03/18/18 03/18/18 09:54 09:54 09:54 WBC 7.5 RBC 4.78 Hgb 13.8 Hct 40.8 MCV 85.3 MCH 28.9 MCHC 33.8 RDW 13.6 Plt Count 272 PT 13.0 INR 1.2 APTT 35.8 Sodium 136 Potassium 3.8 Chloride 102 Carbon Dioxide 22 Anion Gap 16 BUN 5 L Creatinine 0.5 L Est GFR ( Amer) > 60 Est GFR (Non-Af Amer) > 60 Random Glucose 130 H Calcium 8.8 Total Bilirubin 0.3 AST 26 ALT 40 Alkaline Phosphatase 48 Total Protein 7.0 Albumin 3.7 Globulin 3.3 Albumin/Globulin Ratio 1.1 Acetaminophen 03/18/18 03/18/18 03/18/18 09:54 21:30 23:16 WBC RBC Hgb Hct MCV MCH MCHC RDW Plt Count PT INR APTT 32.3 Sodium Potassium Chloride Carbon Dioxide Anion Gap BUN Creatinine Est GFR ( Amer) Est GFR (Non-Af Amer) Random Glucose Calcium Total Bilirubin AST 44 H D ALT 40 Alkaline Phosphatase Total Protein Albumin Globulin Albumin/Globulin Ratio Acetaminophen 21.0 03/18/18 03/19/18 03/19/18 23:16 06:00 06:00 WBC 5.9 RBC 4.51 Hgb 13.1 Hct 38.7 MCV 85.6 MCH 29.0 MCHC 33.8 RDW 13.9 Plt Count 230 PT 13.3 H 13.1 INR 1.2 1.2 APTT 32.8 Sodium Potassium Chloride Carbon Dioxide Anion Gap BUN Creatinine Est GFR ( Amer) Est GFR (Non-Af Amer) Random Glucose Calcium Total Bilirubin AST ALT Alkaline Phosphatase Total Protein Albumin Globulin Albumin/Globulin Ratio Acetaminophen 03/19/18 06:00 WBC RBC Hgb Hct MCV MCH MCHC RDW Plt Count PT INR APTT Sodium 142 Potassium 3.5 L Chloride 110 H Carbon Dioxide 26 Anion Gap 10 BUN 2 L Creatinine 0.6 L Est GFR ( Amer) > 60 Est GFR (Non-Af Amer) > 60 Random Glucose 99 Calcium 8.9 Total Bilirubin 0.1 L AST 24 ALT 38 Alkaline Phosphatase 44 Total Protein 6.4 Albumin 3.4 L Globulin 3.0 Albumin/Globulin Ratio 1.1 Acetaminophen Fingerstick Blood Sugar Results: 100 Review of Systems - Review of Systems All systems: reviewed and no additional remarkable complaints except Critical Care Progress Note - Extremities/Vascular Does the Patient have a Central Venous Catheter?: No Does the Patient need a Central Venous Catheter?: No Does the Patient have a Wolff Catheter?: No Does the Patient need a Wolff Catheter?: No - Nutrition Nutrition: Nutrition Category Date Time Status Regular Diet [DIET] Diets 03/18/18 Dinner Active Assessment/Plan (1) Ibuprofen overdose Status: Acute Priority: High (2) Acetaminophen overdose Status: Acute Priority: High (3) Depression Status: Acute Priority: High (4) Suicidal behavior with attempted self-injury Status: Acute Priority: High
--- NOTE | 2018-03-19 10:26 | CP.PCM.DIS ---
Provider - Provider Date of Admission: 03/18/18 01:27 Attending physician: Janes Cotto Primary care physician: None Consults: psychiatry consult Time Spent in preparation of Discharge (in minutes): 10 Hospital Course - Lab Results Lab Results: Most Recent Lab Values WBC 5.9 K/uL (4.8-10.8) 03/19/18 06:00 RBC 4.51 Mil/uL (3.80-5.20) 03/19/18 06:00 Hgb 13.1 g/dL (12.0-16.0) 03/19/18 06:00 Hct 38.7 % (34.0-47.0) 03/19/18 06:00 MCV 85.6 fl (81.0-99.0) 03/19/18 06:00 MCH 29.0 pg (27.0-31.0) 03/19/18 06:00 MCHC 33.8 g/dL (33.0-37.0) 03/19/18 06:00 RDW 13.9 % (11.5-14.5) 03/19/18 06:00 Plt Count 230 K/uL (130-400) 03/19/18 06:00 MPV 9.2 fl (7.2-11.7) 03/18/18 00:43 Neut % (Auto) 53.6 % (50.0-75.0) 03/18/18 00:43 Lymph % (Auto) 37.9 % (20.0-40.0) 03/18/18 00:43 Walton % (Auto) 6.6 % (0.0-10.0) 03/18/18 00:43 Eos % (Auto) 0.9 % (0.0-4.0) 03/18/18 00:43 Baso % (Auto) 1.0 % (0.0-2.0) 03/18/18 00:43 Neut # (Auto) 4.1 K/uL (1.8-7.0) 03/18/18 00:43 Lymph # (Auto) 2.9 K/uL (1.0-4.3) 03/18/18 00:43 Walton # (Auto) 0.5 K/uL (0.0-0.8) 03/18/18 00:43 Eos # (Auto) 0.1 K/uL (0.0-0.7) 03/18/18 00:43 Baso # (Auto) 0.1 K/uL (0.0-0.2) 03/18/18 00:43 PT 13.1 Seconds (9.8-13.1) 03/19/18 06:00 INR 1.2 03/19/18 06:00 APTT 32.8 Seconds (25.6-37.1) 03/18/18 23:16 pCO2 37 mm/Hg (35-45) 03/18/18 04:22 pO2 92 mm/Hg (80-100) 03/18/18 04:22 HCO3 23.2 mmol/L (21-28) 03/18/18 04:22 ABG pH 7.39 (7.35-7.45) 03/18/18 04:22 ABG Total CO2 23.5 mmol/L (22-28) 03/18/18 04:22 ABG O2 Saturation 99.5 % (95-98) H 03/18/18 04:22 ABG O2 Content 18.6 ML/dL (15-23) 03/18/18 04:22 ABG Base Excess -2.2 mmol/L (-2.0-3.0) L 03/18/18 04:22 ABG Hemoglobin 13.7 g/dL (11.7-17.4) 03/18/18 04:22 ABG Carboxyhemoglobin 1.8 % (0.5-1.5) H 03/18/18 04:22 POC ABG HHb (Measured) 0.5 % (0.0-5.0) 03/18/18 04:22 ABG Methemoglobin 1.6 % (0.0-3.0) 03/18/18 04:22 ABG O2 Capacity 18.7 mL/dL (16-24) 03/18/18 04:22 [place] Test Yes 03/18/18 04:22 A-a O2 Difference 11.0 mm/Hg 03/18/18 04:22 Hgb O2 Saturation 96.1 % (95.0-98.0) 03/18/18 04:22 FiO2 21.0 % 03/18/18 04:22 Sodium 142 mmol/l (132-148) 03/19/18 06:00 Potassium 3.5 MMOL/L (3.6-5.0) L 03/19/18 06:00 Chloride 110 mmol/L (98-107) H 03/19/18 06:00 Carbon Dioxide 26 mmol/L (22-30) 03/19/18 06:00 Anion Gap 10 (10-20) 03/19/18 06:00 BUN 2 mg/dl (7-17) L 03/19/18 06:00 Creatinine 0.6 mg/dl (0.7-1.2) L 03/19/18 06:00 Est GFR ( Amer) > 60 03/19/18 06:00 Est GFR (Non-Af Amer) > 60 03/19/18 06:00 POC Glucose (mg/dL) 100 mg/dL (65-110) 03/18/18 00:44 Random Glucose 99 mg/dL (65-105) 03/19/18 06:00 Lactic Acid 1.2 MMOL/L (0.7-2.1) 03/18/18 00:43 Calcium 8.9 mg/dL (8.4-10.2) 03/19/18 06:00 Phosphorus 2.7 mg/dl (2.5-4.5) 03/18/18 04:20 Magnesium 1.6 MG/DL (1.6-2.3) 03/18/18 04:20 Total Bilirubin 0.1 mg/dl (0.2-1.3) L 03/19/18 06:00 Direct Bilirubin 0.0 mg/ml (0.0-0.4) 03/18/18 04:20 AST 24 U/L (14-36) 03/19/18 06:00 ALT 38 U/L (9-52) 03/19/18 06:00 Alkaline Phosphatase 44 U/L (38-126) 03/19/18 06:00 Total Protein 6.4 G/DL (6.3-8.2) 03/19/18 06:00 Albumin 3.4 g/dL (3.5-5.0) L 03/19/18 06:00 Globulin 3.0 gm/dL (2.2-3.9) 03/19/18 06:00 Albumin/Globulin Ratio 1.1 (1.0-2.1) 03/19/18 06:00 Salicylates < 1.0 mg/dl 03/18/18 00:43 Urine Opiates Screen Negative (NEGATIVE) 03/18/18 00:43 Urine Methadone Screen Negative (NEGATIVE) 03/18/18 00:43 Acetaminophen 21.0 ug/ml (10.0-30.0) 03/18/18 09:54 Ur Barbiturates Screen Negative (NEGATIVE) 03/18/18 00:43 Ur Phencyclidine Scrn Negative (NEGATIVE) 03/18/18 00:43 Ur Amphetamines Screen Negative (NEGATIVE) 03/18/18 00:43 U Benzodiazepines Scrn Negative (NEGATIVE) 03/18/18 00:43 U Oth Cocaine Metabols Negative (NEGATIVE) 03/18/18 00:43 U Cannabinoids Screen Negative (NEGATIVE) 03/18/18 00:43 Alcohol, Quantitative < 10 mg/dl (0-10) 03/18/18 00:43 - Hospital Course Hospital Course: 22 yo F with PMH of depression and previous suicidal attempts presents to the ED after attempting suicide with ingestion of Ibuprophen #44 tablets and Tylenol # 28 tablets. She reports that she and her had an argument earlier in the day. Approximately 7 hours prior, she ingested the tablets.She reported chronic history of depression starting at age 17 with thoughts of suicide. At age of 20, she attempted suicide by jumping off a bridge. She was then treated by a therapist at [facility]. Last time she saw her therapist was 1 year ago. She is actively suicidal Poison control was consulted and she was admitted in ICU and started on acetylcysteine drip . Tylenol levels initially were 145 . LFT -s PT/ INr and tylenol levels were monitored and trended down to normal Tylenol level today 25 . Poison control re consulted and Acetylcysteine drip discontinued Psychiatry was consulted and recommended psychiatric admission for treatment of depression . Patient agreed to voluntary admission Will d/c to [facility] psychiatric unit today in stable conditions Dx 1. Tylenol overdose 2. Ibuprofen overdose 3.Recurrent major depression with suicidal attempt Discharge Exam - Head Exam Head Exam: ATRAUMATIC, NORMAL INSPECTION, NORMOCEPHALIC - Eye Exam Eye Exam: EOMI, Normal appearance, PERRL Pupil Exam: NORMAL ACCOMODATION - ENT Exam ENT Exam: Mucous Membranes Moist, Normal Exam - Neck Exam Neck exam: Full Rom, Normal Inspection - Respiratory Exam Respiratory Exam: Clear to PA & Lateral, NORMAL BREATHING PATTERN. absent: Rales, Rhonchi, Wheezes - Cardiovascular Exam Cardiovascular Exam: REGULAR RHYTHM, RRR, +S1, +S2. absent: JVD - GI/Abdominal Exam GI & Abdominal Exam: Normal Bowel Sounds, Soft. absent: Distended, Guarding, Rebound, Tenderness - Rectal Exam Rectal Exam: Deferred - Extremities Exam Extremities exam: normal capillary refill, normal inspection, pedal pulses present - Back Exam Back exam: NORMAL INSPECTION - Neurological Exam Neurological exam: Alert, CN II-XII Intact, Oriented x3 - Psychiatric Exam Psychiatric exam: Flat Affect - Skin Skin Exam: Dry, Intact, Normal Color, Warm Discharge Plan - Follow Up Plan Condition: STABLE Disposition: DISCHARGE TO PSYCH HOSPITAL Patient education suggested?: Yes
== END 2018-03-19 10:00 | DRG 450 ==
LOC: H.ER 23:59 → H.ERHOLD 03-18 01:27 → H.ICU/CCU 03-18 02:47
PROVIDERS: ADMIT Internal Medicine; ATTEND Internal Medicine
DX: T39.312A Poisoning by propionic acid derivatives, intentional self-harm, initial encounter (principal); T39.1X2A Poisoning by 4-Aminophenol derivatives, intentional self-harm, initial encounter; Y92.9 Unspecified place or not applicable; Z91.5 Personal history of self-harm; F33.9 Major depressive disorder, recurrent, unspecified; I10 Essential (primary) hypertension; R45.851 Suicidal ideations; K29.70 Gastritis, unspecified, without bleeding

== ENCOUNTER 2018-04-10 17:23 | Emergency (ER) | payer SELFPAY ==
[2018-04-10 17:23] VITALS: BMI 26.5
[2018-04-10 17:48] VITALS: BP 135/70; PULSE 82; RESP 16; TEMP 98.2; O2SAT 99
--- NOTE | 2018-04-10 18:40 | ED PDOC ---
HPI: Female Pain Time Seen by Provider: 04/10/18 18:36 Chief Complaint (Nursing): Female Genitourinary Chief Complaint (Provider): VAGINAL PAIN History Per: Patient (22 Y/O FEMALE HERE WITH VAGINAL PAIN NOTED AFTER SEX THIS WEEK. DENIES ANY DYSURIA. NOTES HER MENSTRUATION STARTED TODAY. NOTES MILD PRURITIS EXTERNALLY.) Past Medical History Reviewed: Historical Data, Nursing Documentation, Vital Signs Vital Signs: Last Vital Signs Temp 98.2 F 04/10/18 17:45 Pulse 82 04/10/18 17:45 Resp 16 04/10/18 17:45 BP 135/70 04/10/18 17:45 Pulse Ox 99 04/10/18 17:45 - Medical History PMH: Depression Denies: Kidney Stones, Chronic Kidney Disease - Family History Family History: States: Unknown Family Hx - Immunization History Hx Tetanus Toxoid Vaccination: No Hx Influenza Vaccination: No Hx Pneumococcal Vaccination: No - Home Medications Home Medications: Ambulatory Orders Medication Instructions Recorded Naproxen 375 mg PO Q8 PRN #21 tablet 02/08/18 Norethindrone-E.estradiol-Iron 1 tab PO DAILY 03/19/18 [[place] Fe 1-20 Tablet] Escitalopram [Lexapro] 10 mg PO DAILY 30 Days #30 tab 03/22/18 Miconazole Nitrate [Monistat 3] 1 each VG DAILY #1 kit 04/10/18 - Allergies Allergies/Adverse Reactions: Allergies Allergy/AdvReac Type Severity Reaction Status Date / Time No Known Allergies Allergy Verified 04/10/18 17:44 Review of Systems ROS Statement: Except As Marked, All Systems Reviewed And Found Negative Physical Exam - Reviewed Nursing Documentation Reviewed: Yes Vital Signs Reviewed: Yes - Physical Exam Appears: Positive for: Well, Non-toxic, No Acute Distress Head Exam: Positive for: ATRAUMATIC, NORMAL INSPECTION, NORMOCEPHALIC Skin: Positive for: Normal Color, Warm, DRY Eye Exam: Positive for: EOMI, Normal appearance, PERRL ENT: Positive for: Normal ENT Inspection Neck: Positive for: Normal, Painless ROM Cardiovascular/Chest: Positive for: Regular Rate, Rhythm Respiratory: Positive for: CNT, Normal Breath Sounds Gastrointestinal/Abdominal: Positive for: Normal Exam, Soft Pelvic Exam: Positive for: Active Bleeding, Other (NO OBVIOUS RASH/VAGINAL DISC HARGE.) Back: Positive for: Normal Inspection Extremity: Positive for: Normal ROM Neurologic/Psych: Positive for: Alert, Oriented - Laboratory Results Urine POC: Negative - ECG O2 Sat by Pulse Oximetry: 99 Disposition - Clinical Impression Clinical Impression: Genitourinary Pain - Patient ED Disposition Is Patient to be Admitted: No - Disposition [facility] Disposition: Routine/Home Disposition Time: 18:40 Condition: FAIR Prescriptions: Miconazole Nitrate [Monistat 3] 1 each VG DAILY #1 kit Instructions: Vaginitis
== END 2018-04-10 19:06 | disposition home or self-care (01) ==
LOC: H.ER 17:23
DX: R10.2 Pelvic and perineal pain (principal)

== ENCOUNTER 2018-04-20 18:09 | Emergency (ER) | payer SELFPAY ==
[2018-04-20 18:15] VITALS: RESP 16; TEMP 98.5; O2SAT 97; BMI 30.1
--- NOTE | 2018-04-20 18:55 | ED PDOC ---
HPI: Female Pain Time Seen by Provider: 04/20/18 18:25 Chief Complaint (Nursing): Female Genitourinary Chief Complaint (Provider): dysuria History Per: Patient History/Exam Limitations: no limitations Onset/Duration Of Symptoms: Days (10 days) Current Symptoms Are (Timing): Still Present Quality Of Discomfort: Burning Associated Symptoms: denies: Fever, Chills, Nausea, Vomiting, Diarrhea, Loss Of Appetite Alleviating Factors: None Additional Complaint(s): Seen 10 days ago having genital itching. Seen in ER at that time. Since then symptoms have worsened and now reports seeing bumps near posterior vaginal opening associated with dysuria Past Medical History Reviewed: Historical Data, Nursing Documentation, Vital Signs Vital Signs: Last Vital Signs Temp 98.5 F 04/20/18 18:14 Pulse 103 H 04/20/18 18:14 Resp 16 04/20/18 18:14 BP 150/87 04/20/18 18:14 Pulse Ox 97 04/20/18 18:14 - Medical History PMH: Depression Denies: Kidney Stones, Chronic Kidney Disease - Surgical History Surgical History: No Surg Hx - Family History Family History: States: Unknown Family Hx - Social History Current smoker - smoking cessation education provided: No - Immunization History Hx Tetanus Toxoid Vaccination: No Hx Influenza Vaccination: No Hx Pneumococcal Vaccination: No - Home Medications Home Medications: Ambulatory Orders Medication Instructions Recorded Naproxen 375 mg PO Q8 PRN #21 tablet 02/08/18 Norethindrone-E.estradiol-Iron 1 tab PO DAILY 03/19/18 [[place] Fe 1-20 Tablet] Escitalopram [Lexapro] 10 mg PO DAILY 30 Days #30 tab 03/22/18 Miconazole Nitrate [Monistat 3] 1 each VG DAILY #1 kit 04/10/18 Fluconazole [Diflucan] 150 mg PO ONCE #1 tab 04/20/18 - Allergies Allergies/Adverse Reactions: Allergies Allergy/AdvReac Type Severity Reaction Status Date / Time No Known Allergies Allergy Verified 04/10/18 17:44 Review of Systems ROS Statement: Except As Marked, All Systems Reviewed And Found Negative (and as per HPI) Genitourinary Female: Positive for: Dysuria. Negative for: Frequency, Vaginal Discharge, Vaginal Bleeding, Pelvic Pain Skin: Positive for: Lesions Physical Exam - Reviewed Nursing Documentation Reviewed: Yes Vital Signs Reviewed: Yes - Physical Exam Appears: Positive for: Non-toxic, No Acute Distress Head Exam: Positive for: ATRAUMATIC, NORMOCEPHALIC Skin: Positive for: Warm, Dry Gastrointestinal/Abdominal: Positive for: Soft. Negative for: Tenderness Pelvic Exam: Positive for: Discharge (whitish ), Lesions (tag-like lesions to posterior vaginal opening within vulva), Other (erythema of labia majora and minora) Extremity: Positive for: Normal ROM. Negative for: Deformity Lymphatic: Negative for: Adenopathy, Inguinal Node Tenderness Neurologic/Psych: Positive for: Alert. Negative for: Motor/Sensory Deficits - ECG O2 Sat by Pulse Oximetry: 97 Disposition - Clinical Impression Clinical Impression: Dysuria, Vaginitis - Disposition Referrals: [facility] [Outside] Disposition: Routine/Home Disposition Time: 19:59 Condition: STABLE Additional Instructions: PLEASE FOLLOW UP AT CLINIC IN A WEEK Prescriptions: Fluconazole [Diflucan] 150 mg PO ONCE #1 tab Instructions: Vaginitis Forms: [employer] (Panamanian)
[2018-04-20] MEDS ORDERED: Fluconazole 150 MG TAB PO STA (20:03)
[2018-04-20 20:12] VITALS: BP 142/90; PULSE 90
== END 2018-04-20 20:35 | disposition home or self-care (01) ==
LOC: H.ER 18:09
DX: R30.0 Dysuria (principal); N76.0 Acute vaginitis; Z86.59 Personal history of other mental and behavioral disorders

== ENCOUNTER 2018-05-05 12:11 | Emergency (ER) | payer SELFPAY ==
[2018-05-05 12:12] VITALS: BMI 30.1
[2018-05-05 13:52] LABS: SQUAMOUS EPITHIAL 5 /hpf (0-5); URINE BACTERIA RARE (<OCC); URINE BILIRUBIN NEGATIVE (NEGATIVE); URINE BLOOD NEGATIVE (NEGATIVE); URINE CLARITY CLOUDY (Clear); URINE COLOR YELLOW (YELLOW); URINE GLUCOSE (UA) NEG (Normal); URINE LEUKOCYTE ESTERASE TRACE Leu/uL (Negative); URINE PROTEIN 30 mg/dL (NEGATIVE); URINE UROBILINOGEN 0.2-1.0 mg/dL (0.2-1.0)
--- NOTE | 2018-05-05 13:56 | ED PDOC ---
HPI: Female Pain Time Seen by Provider: 05/05/18 12:36 Chief Complaint (Nursing): Female Genitourinary Chief Complaint (Provider): Female Genitourinary History Per: Patient History/Exam Limitations: no limitations Current Symptoms Are (Timing): Still Present Additional Complaint(s): 22 year old female presents to the ED complaining of vaginal pain. Patient states last month, she developed vaginal pruritus and pain during intercourse. She states she was initially seen in the ED and was prescribed Flagyl without any relief prompting a subsequent visit the following week. At that time, she was prescribed Diflucan 2 pills and states after taking 1 pill, symptoms improved but did not resolve. Patient reports she went to [facility] last week and had STD testing done but uncertain of results. She states 3 days ago, vaginal pruritus and pain with intercourse returned. Denies fever, dysuria, pelvic pain, back pain, nausea, vomiting, history STDs, and vaginal discharge. PMD: Felicitas Palencia Past Medical History Reviewed: Historical Data, Nursing Documentation, Vital Signs Vital Signs: Last Vital Signs Temp 98.1 F 05/05/18 12:27 Pulse 87 05/05/18 12:27 Resp 19 05/05/18 12:27 BP 135/88 05/05/18 12:27 Pulse Ox 100 05/05/18 12:27 - Medical History PMH: Depression Denies: Kidney Stones, Chronic Kidney Disease - Surgical History Surgical History: No Surg Hx - Family History Family History: States: Unknown Family Hx - Social History Current smoker - smoking cessation education provided: No Alcohol: None Drugs: Denies - Immunization History Hx Tetanus Toxoid Vaccination: No Hx Influenza Vaccination: No Hx Pneumococcal Vaccination: No - Home Medications Home Medications: Ambulatory Orders Medication Instructions Recorded Naproxen 375 mg PO Q8 PRN #21 tablet 02/08/18 Norethindrone-E.estradiol-Iron 1 tab PO DAILY 03/19/18 [[place] Fe 1-20 Tablet] Escitalopram [Lexapro] 10 mg PO DAILY 30 Days #30 tab 03/22/18 Miconazole Nitrate [Monistat 3] 1 each VG DAILY #1 kit 04/10/18 Fluconazole [Diflucan] 150 mg PO ONCE #1 tab 04/20/18 Fluconazole [Diflucan] 150 mg PO Q72 #2 tab 05/05/18 Metronidazole [Flagyl] 2,000 mg PO ONCE #4 tablet 05/05/18 - Allergies Allergies/Adverse Reactions: Allergies Allergy/AdvReac Type Severity Reaction Status Date / Time No Known Allergies Allergy Verified 04/10/18 17:44 Review of Systems ROS Statement: Except As Marked, All Systems Reviewed And Found Negative Constitutional: Negative for: Fever Gastrointestinal: Negative for: Nausea, Vomiting Genitourinary Female: Positive for: Other (Vaginal pain). Negative for: Dysuria, Vaginal Discharge, Pelvic Pain Musculoskeletal: Negative for: Back Pain Physical Exam - Reviewed Nursing Documentation Reviewed: Yes Vital Signs Reviewed: Yes - Physical Exam Appears: Positive for: Non-toxic, No Acute Distress Head Exam: Positive for: ATRAUMATIC, NORMOCEPHALIC Skin: Positive for: Normal Color, Warm, Dry Eye Exam: Positive for: Normal appearance Neck: Positive for: Normal, Painless ROM Gastrointestinal/Abdominal: Positive for: Normal Exam, Soft. Negative for: Tenderness Pelvic Exam: Positive for: Discharge (Yellow whitish cervical discharge). Negative for: Active Bleeding, Lesions, Mass, Tender W/Cervical Motion, Other (Left Hand cervix) Extremity: Positive for: Normal ROM Neurologic/Psych: Positive for: Alert, Oriented. 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 I have reviewed the chart and agree that the record accurately reflects my personal performance of the history, physical exam, medical decision making, and the department course for this patient. I have also personally directed, reviewed, and agree with the discharge instructions and disposition. Disposition - Clinical Impression Clinical Impression: Vaginitis - Patient ED Disposition Is Patient to be Admitted: No - Disposition Referrals: [facility] [Outside] [facility] [[facility] Disposition: Routine/Home Disposition Time: 14:23 Condition: STABLE Additional Instructions: FOLLOW UP WITH [facility] FOR FURTHER EVALUATION RETURN TO ED IMMEDIATELY IF SYMPTOMS WORSEN INFORM YOUR SEXUAL PARTNER(S) OF PENDING DIAGNOSIS REFRAIN FROM SEXUAL INTERCOURSE UNTIL DIAGNOSIS IS MADE DIETER ZAVALA, thank you for letting us take care of you today. Your provider was Mikie Escobar III, DO and you were treated for VAGINAL PAIN. The emergency medical care you received today was directed at your acute symptoms. If you were prescribed any medication, please fill it and take as directed. It may take several days for your symptoms to resolve. Return to the Emergency Department if your symptoms worsen, do not improve, or if you have any other problems. Please contact your doctor or call one of the physicians/clinics you have been referred to that are listed on the Patient Visit Information form that is incl uded in your discharge packet. Bring any paperwork you were given at discharge with you along with any medications you are taking to your follow up visit. Our treatment cannot replace ongoing medical care by a primary care provider outside of the emergency department. Thank you for allowing the [facility] team to be part of your care today. If you had an X-Ray or CT scan: A Radiologist will review the ED reading if any change in treatment is needed we will contact you. If you had a blood, urine, or wound culture: It will take several days for the results, if any change in treatment is needed we will contact you. If you had an STI test: It will take 48 hours for the results. Please call after 1 week if you have not heard back. Prescriptions: Fluconazole [Diflucan] 150 mg PO Q72 #2 tab Metronidazole [Flagyl] 2,000 mg PO ONCE #4 tablet Instructions: Vaginitis Forms: [employer] (Surinamese)
[2018-05-05 14:55] VITALS: BP 127/81; PULSE 74; RESP 17; TEMP 98.7; O2SAT 99
== END 2018-05-05 14:55 | disposition home or self-care (01) ==
LOC: H.ER 12:11
DX: N76.0 Acute vaginitis (principal)

== ENCOUNTER 2018-05-25 15:20 | Emergency (ER) | payer SELFPAY ==
[2018-05-25 15:21] VITALS: BMI 30.1
[2018-05-25 15:30] VITALS: BP 133/84; PULSE 95; RESP 18; TEMP 98.2; O2SAT 99
--- NOTE | 2018-05-25 15:51 | ED PDOC ---
HPI: Female Pain Time Seen by Provider: 05/25/18 15:33 Chief Complaint (Nursing): Female Genitourinary Chief Complaint (Provider): Female Genitourinary History Per: Patient History/Exam Limitations: no limitations Onset/Duration Of Symptoms: Days (x 3) Current Symptoms Are (Timing): Still Present Quality Of Discomfort: Other (irritation) Associated Symptoms: denies: Fever, Chills, Urinary Symptoms Additional Complaint(s): 22 year old female presents to the ED with vaginal irritation for the last 3 days. Patient reports this is her 4th episode of these symptoms in 2 months. She was seen in this ED on 05/05 and discharged with Diflucan and Flagyl which improved symptoms significantly. [facility]. However, 3 days ago, the patient had intercourse with her and the symptoms returned. She has been unable to get an appointment with [facility] since. Her LNMP was 2 weeks ago. Denies discharge, hematuria, dysuria, frequency, fever, chills, and pelvic pain. PMD: none Abnormal Vaginal Bleeding: No Last Menstral Period: 05/11/2018 Past Medical History Reviewed: Historical Data, Nursing Documentation, Vital Signs Vital Signs: Last Vital Signs Temp 98.2 F 05/25/18 15:27 Pulse 95 H 05/25/18 15:27 Resp 18 05/25/18 15:27 BP 133/84 05/25/18 15:27 Pulse Ox 99 05/25/18 15:27 - Medical History PMH: Depression Denies: Kidney Stones, Chronic Kidney Disease - Surgical History Surgical History: No Surg Hx - Family History Family History: States: Unknown Family Hx - Immunization History Hx Tetanus Toxoid Vaccination: No Hx Influenza Vaccination: No Hx Pneumococcal Vaccination: No - Home Medications Home Medications: Ambulatory Orders Medication Instructions Recorded RX: Naproxen 375 mg PO Q8 PRN #21 tablet 02/08/18 RX: Norethindrone-E.estradiol-Iron 1 tab PO DAILY 03/19/18 [[place] Fe 1-20 Tablet] RX: Escitalopram [Lexapro] 10 mg PO DAILY 30 Days #30 tab 03/22/18 Miconazole Nitrate [Monistat 3] 1 each VG DAILY #1 kit 04/10/18 Fluconazole [Diflucan] 150 mg PO ONCE #1 tab 04/20/18 Fluconazole [Diflucan] 150 mg PO Q72 #2 tab 05/25/18 Metronidazole [Flagyl] 2,000 mg PO ONCE #4 tablet 05/25/18 - Allergies Allergies/Adverse Reactions: Allergies Allergy/AdvReac Type Severity Reaction Status Date / Time No Known Allergies Allergy Verified 04/10/18 17:44 Review of Systems ROS Statement: Except As Marked, All Systems Reviewed And Found Negative Constitutional: Negative for: Fever, Chills Genitourinary Female: Positive for: Other (vaginal irritation). Negative for: Dysuria, Frequency, Hematuria, Vaginal Discharge, Vaginal Bleeding, Pelvic Pain Physical Exam - Reviewed Nursing Documentation Reviewed: Yes Vital Signs Reviewed: Yes - Physical Exam Appears: Positive for: Well, No Acute Distress Head Exam: Positive for: ATRAUMATIC, NORMAL INSPECTION, NORMOCEPHALIC Skin: Positive for: Normal Color, Warm, Dry. Negative for: Rash Eye Exam: Positive for: EOMI, Normal appearance, PERRL Cardiovascular/Chest: Positive for: Regular Rate, Rhythm. Negative for: Murmur Respiratory: Positive for: Normal Breath Sounds. Negative for: Respiratory Distress Gastrointestinal/Abdominal: Positive for: Soft. Negative for: Tenderness, Mass, Distended, Guarding, Rebound Pelvic Exam: Positive for: Discharge (scant whitish discharge in vaginal canal and cervix ), Other (erythema surrounding labia minora and vulva). Negative for: Tender W/Cervical Motion, Tender Adnexa Extremity: Positive for: Normal ROM Neurologic/Psych: Positive for: Alert, Oriented. Negative for: Motor/Sensory Deficits - ECG O2 Sat by Pulse Oximetry: 99 (RA) Pulse Ox Interpretation: Normal Medical Decision Making Medical Decision Makin:36 Impression: recurrent vaginitis Initial Plan: --Urine preg --Urine dip [facility] [place] Strongly advised further management with clinic, including need for partner to be evaluated at clinic as well. Scribe Attestation: Documented by Spring Alarcon, acting as a scribe for Caterina Robbins MD Provider Scribe Attestation: All medical record entries made by the Scribe were at my direction and personally dictated by me. I have reviewed the chart and agree that the record accurately reflects my personal performance of the history, physical exam, medical decision making, and the department course for this patient. I have also personally directed, reviewed, and agree with the discharge instructions and disposition. Disposition - Clinical Impression Clinical Impression: Vaginitis - Disposition Referrals: [facility] [Outside] - 05/27/18 (YOU AND YOUR SHOULD FOLLOW UP AT CLINIC FOR EVALUATION.) Disposition: Routine/Home Disposition Time: 17:00 Condition: STABLE Prescriptions: Fluconazole [Diflucan] 150 mg PO Q72 #2 tab Metronidazole [Flagyl] 2,000 mg PO ONCE #4 tablet Instructions: Vaginitis
== END 2018-05-25 16:32 | disposition home or self-care (01) ==
LOC: H.ER 15:20
DX: N76.0 Acute vaginitis (principal); Z86.59 Personal history of other mental and behavioral disorders